=== PATIENT | female | born 1990 | race Caucasian/White ===

== ENCOUNTER 2018-06-09 10:58 | Day surgery (SDC) | payer OTHER ==
[2018-06-09] MEDS ORDERED: OXYMETAZOLINE HCL 0.05% 15ML NAS ONE ×4 (11:22→11:50)
[2018-06-09] MEDS ORDERED: Ringers Lactate 1,000 ML IV ONE ×2 (11:22→14:30)
[2018-06-09] MEDS ORDERED: SCOPOLAMINE HYDROBROMIDE PATCH TD ONE (11:42)
[2018-06-09] MEDS ORDERED: LIDOCAINE 1.5% W/EPI AMP 5 ML ONE (11:50)
[2018-06-09] MEDS ORDERED: NA CHLORIDE 0.9% 500 ML ONE (11:51)
[2018-06-09] MEDS ORDERED: PROPOFOL 200 MG/20 ML VIAL IV ONE (12:12)
[2018-06-09] MEDS ORDERED: FENTANYL CITR 250 MCG/5 ML ONE (12:12)
[2018-06-09] MEDS ORDERED: MIDAZOLAM HCL 2 MG/2 ML INJ ONE (12:12)
[2018-06-09] MEDS ORDERED: DEXAMETHASONE 4 MG/ML VIAL ONE (12:12)
[2018-06-09] MEDS ORDERED: ROCURONIUM 50 MG/5 ML VIAL IV ONE (12:12)
[2018-06-09] MEDS ORDERED: LIDOCAINE 2% MPF 5 ML VIAL ONE (12:12)
[2018-06-09] MEDS ORDERED: GLYCOPYRROLATE 0.2 MG/ML SYR ONE ×2 (12:48→12:50)
[2018-06-09] MEDS ORDERED: ONDANSETRON 4 MG/2 ML VIAL ONE ×2 (12:59→15:23)
[2018-06-09] MEDS: MORPHINE 4 MG/ML SYR ONE ×2 (14:54→15:00)
--- NOTE | 2018-06-09 15:32 | P.BOP ---
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
[2018-06-09] MEDS ORDERED: TRAMADOL HCL 50 MG TAB ONE (15:47)
--- NOTE | 2018-06-13 06:51 | OP ---
Date of Procedure: 06/09/2018 Surgeon: Marj Alvarado MD Preoperative Diagnosis: Chronic rhinosinusitis, previous sinus surgery. Indication For Procedure: Ms. Constance Thornton presented with moderate sinus symptoms, and a post-gurpreet tment CT scan demonstrated persistent disease in the ethmoid and frontal sinuses as well as the maxil rubens. The risks, benefits, and alternatives to the procedure were discussed with the patient, who ag jerome to proceed. Description Of Procedure: The patient was brought to the operating room. She was placed under gener al anesthesia via oral endotracheal tube. The head of the bed was turned to 90 degrees. The [employer] B navigation headpiece was secured to the forehead and registration was performed using the laser poi nter. Accuracy was confirmed by [id number] matching including the tip of the nose, the base of t he columella, the glabella, and the bilateral lateral canthi. Accuracy was felt to be very good. Th e patient was then prepped and draped in the standard fashion for sinus surgery. A 0-degree endoscop e was used to perform a nasal endoscopy. She was noted to have mild left septal deviation, and signi ficant surgical changes. The left middle turbinate was significantly scarred to the lateral nasal wa ll. The scar band was extended to full height of the middle turbinate. On the right side, a similar scar band was extended approximately 75% of the length of the middle turbinate. These areas of scar band were injected with local anesthetic. A through-cutting 45-degree Blakesley was used to remove this scar band on either side. Maxillary antrostomies were noted to have severe edema around the ope nings, and this edematous tissue was removed using a backbiter, 90-degree Blakesley, and microdebride r. After opening of the maxillary sinus, thick mucoid secretions were suctioned from the maxillary s inus, and attention was turned to the ethmoid cells. There were significant residual ethmoid cells i n the anterior ethmoid, particularly along the lamina. The location of these cells was confirmed wit h the navigation suction, and a curette was used to begin to divide the partitions. The bone was not ed to be severely osteitic, much harder than normal, requiring significantly increased pressure with the curette in order to divide these partitions. Once the partitions were divided, all bony fragment s were removed using the straight 45 and 90-degree Blakesley, and dissection was carried up towards t he frontal recess. The frontal recess was identified using the curved navigation suction, but was ve ry narrow. Dissection of the bony partitions within the superior portions of the anterior ethmoid wa s attempted using a 70-degree scope with a 90-degree curette as well as [id number] and side-to-joseph e Giraffe. The bone in this area was likewise noted to be very osteitic and difficult to dissect. A portion of the bone was removed, but additional dissection was truncated due to concerns for possibl e damage to the skull base due to the degree of pressure required to divide this osteitic bone. The GliaCureus balloon device was used to navigate the frontal recess. The frontal recess was dilated in o rder to provide some symptomatic improvement for the patient. Additional ethmoid dissection was perf ormed following dilation due to some loosening of bony fragments in the area of the frontal recess. Evaluation of the sphenoethmoidal recess was undertaken, the area was palpated and suctioned, but con sistent with preoperative imaging, the sphenoid was minimally developed, and there was no true sinus cavity present. The sinus cavity was then packed with Afrin-soaked pledgets, which were allowed to r emain in place for several minutes in order to allow for hemostasis. After removal of the pledgets, the sinuses were thoroughly irrigated with copious amounts of sterile saline. The pledgets were all removed, and the count was confirmed to be correct. Due to degree of scarring from previous surgery, a decision was made for placement of steroid-eluting stents to provide those visible separations bet ween structures as well as application of steroid to the mucosa. Overall, there was not significant amount of polyp noted within the sinuses, though there were areas of polypoid swelling as well as the thick mucoid secretions. A Propel mini stent was placed under endoscopic guidance into the frontal recess bilaterally, and a standard size Propel stent was placed within the ethmoid cavity bilaterally . Sinus culture of purulent-appearing debris was collected intraoperatively, and the patient will be started on antibiotics once results are available. ELLIOTT/LAURA Voice ID: [id number] Report ID: [id number]
== END 2018-06-09 16:15 | disposition home or self-care (01) ==
LOC: OR 10:58
PROVIDERS: ATTEND Otolaryngology
PROC: 09BV8ZZ Excision of Left Ethmoid Sinus, Via Natural or Artificial Opening Endoscopic (ICD-10-PCS; 2018-06-09)
PROC: 09BQ8ZZ Excision of Right Maxillary Sinus, Via Natural or Artificial Opening Endoscopic (ICD-10-PCS; 2018-06-09)
PROC: 09BR8ZZ Excision of Left Maxillary Sinus, Via Natural or Artificial Opening Endoscopic (ICD-10-PCS; 2018-06-09)
PROC: 09BU8ZZ Excision of Right Ethmoid Sinus, Via Natural or Artificial Opening Endoscopic (ICD-10-PCS; 2018-06-09)
PROC: 8E09XBZ Computer Assisted Procedure of Head and Neck Region (ICD-10-PCS; 2018-06-09)
PROC: 09QT8ZZ Repair Left Frontal Sinus, Via Natural or Artificial Opening Endoscopic (ICD-10-PCS; 2018-06-09)
PROC: 09QS8ZZ Repair Right Frontal Sinus, Via Natural or Artificial Opening Endoscopic (ICD-10-PCS; 2018-06-09)
PROC: 8E09XBZ Computer Assisted Procedure of Head and Neck Region (ICD-10-PCS; principal; 2018-06-09 12:00)
DX: J32.2 Chronic ethmoidal sinusitis (principal); J32.1 Chronic frontal sinusitis; J32.0 Chronic maxillary sinusitis; J34.2 Deviated nasal septum; Z87.891 Personal history of nicotine dependence
CPT/HCPCS: 81025; 87070; 87077; 87186; 87205; 88304; 88305; 88311; J2001; J2250; J2405; J2704; J3010

== ENCOUNTER → 2023-05-07 | Emergency (ER) | payer BC, OTHER ==
[~2023-05-07] MED LIST: KETOROLAC 30 MG/ML INJ ONE; NA CHLORIDE 0.9% 1,000 ML ONE; ONDANSETRON 4 MG/2 ML VIAL ONE
[2023-05-07 15:03] LABS: Specific Gravity < 1.005 (1.005-1.030)
[2023-05-07 15:04] LABS: Specific Gravity < 1.005 (1.005-1.030); Urine Bilirubin NEGATIVE (Negative); Urine Blood Negative (Negative); Urine Clarity Clear (Clear); Urine Color Colorless (Yellow); Urine Glucose NEGATIVE (Negative); Urine Protein NEGATIVE (Negative); Urine Urobilinogen Normal (Normal)
[2023-05-07 15:18] LABS: Albumin 3.7 g/dL (3.4-5.0); Bilirubin Total 0.6 mg/dL (0.2-1.0); Potassium 3.3 mEq/L (3.5-5.1); Protein, Total 7.5 g/dL (6.4-8.2)
[2023-05-07 15:26] LABS: Lymphocytes % 14.9 % (15.3-44.8); Platelets 177 thou/uL (152-406); RBC Red Blood Cell Count 3.27 M/uL (3.86-4.86)
--- NOTE | 2023-05-07 15:52 | RAD REPORT ---
EXAM DESCRIPTION: CTAbdomen Pelvis W Contrast - 05/07/2023 3:43 pm CLINICAL HISTORY: Abdominal pain. ABD PAIN COMPARISON: No comparisons TECHNIQUE: Biphasic CT imaging of the abdomen and pelvis was performed with 100 ml non-ionic IV cont rast. All CT scans are performed using dose optimization technique as appropriate and may include automated exposure control or mA/KV adjustment according to patient size. FINDINGS: Moderate bronchiectasis is seen in the left lower lobe. Mild fatty liver. The spleen, pancreas, adrenal glands and kidneys are within normal limits. Punctate calculi in the left kidney. No bowel obstruction, free air, free fluid or abscess. The appendix is normal. No evidence of signi ficant lymphadenopathy. 24 mm right ovarian follicle. No suspicious bony findings. IMPRESSION: Punctate left nephrolithiasis without hydronephrosis. 24 mm right ovarian follicle.
--- NOTE | 2023-05-07 16:22 | ER ---
Nurse's Notes [facility] Name: Constance Thornton Age: 33 yrs Sex: Female : 1990 Arrival Date: 05/07/2023 Time: 14:21 Bed 17 Private MD: Diagnosis: Lower abdominal pain, unspecified Presentation: 05/07 14:29 Chief complaint: Patient states: "I started having right flank pain 40 minutes ago and mb9 I'm nauseous. I have a history of kidney stones.". Coronavirus screen: At this time, the client does not indicate any symptoms associated with coronavirus-19. Ebola Screen: No symptoms or risks identified at this time. Initial Sepsis Screen: Does the patient meet any 2 criteria? No. Patient's initial sepsis screen is negative. Does the patient have a suspected source of infection? No. Patient's initial sepsis screen is negative. Risk Assessment: Do you want to hurt yourself or someone else? Patient reports no desire to harm self or others. Onset of symptoms was May 07, 2023. 14:29 Method Of Arrival: Ambulatory 9 14:29 Acuity: RENE 3 mb9 Triage Assessment: 14:31 General: Appears in no apparent distress. Behavior is calm, cooperative. Pain: mb9 Complains of pain in back. Neuro: Boogie Agitation-Sedation Scale (RASS): 0 - Alert and Calm Level of Consciousness is awake, alert, obeys commands, Oriented to person, place, time, situation, Appropriate for age. Respiratory: Airway is patent. GI: Reports nausea. : Denies burning with urination, incontinence. Derm: Skin is pink, warm \\T\\ dry. Musculoskeletal: Range of motion: intact in all extremities. Historical: - Allergies: 14:30 No Known Allergies; mb9 - PMHx: 14:30 Asthma; Lupus erythematosus; kidney stones; mb9 - PSHx: 14:30 nephrolithotomy; mb9 - Immunization history:: Adult Immunizations up to date. - Social history:: Smoking status: Patient denies any tobacco usage or history of. Screenin:55 [facility] ED Fall Risk Assessment (Adult) History of falling in the last 3 months, bp including since admission No falls in past 3 months (0 pts). Abuse screen: Denies threats or abuse. Denies injuries from another. Nutritional screening: No deficits noted. Tuberculosis screening: No symptoms or risk factors identified. Assessment: 14:30 General: SEE TRIAGE NOTE. bp 16:54 Reassessment: PT DC HOME. bp Vital Signs: 14:29 BP 116 / 82; Pulse 104; Resp 16; Temp 97.8; Pulse Ox 100% ; Weight 62.6 kg; Height 5 mb9 ft. 0 in. ; Pain 8/10; 16:53 BP 121 / 75; Pulse 87; Resp 18; Pulse Ox 99% ; bp 14:29 Body Mass Index 26.95 (62.60 kg, 152.4 cm) mb9 14:29 Pain Scale: Adult mb9 ED Course: 14:23 Patient arrived in ED. rg4 14:24 Juarez Pelayo DO is Attending Physician. ms3 14:28 Fili Leal, RN is Primary Nurse. bp 14:30 Triage completed. mb9 14:31 Arm band placed on. mb9 15:05 Initial lab(s) drawn, by pr, sent to lab. Urine collected: clean catch specimen, clear. [id number] Inserted saline lock: 22 gauge in right antecubital area, using aseptic technique. Blood collected. 15:45 CT Abd/Pelvis - IV Contrast Only In Process Unspecified. EDMS 16:54 Patient has correct armband on for positive identification. bp 16:54 No provider procedures requiring assistance completed. IV discontinued, intact, bp bleeding controlled, No redness/swelling at site. Pressure dressing applied. Administered Medications: 15:05 Drug: NS 0.9% IV 1000 ml IV at 1 bolus Per protocol; 1000 mL bolus Route: IV; Rate: 1 bp bolus; Site: right antecubital; 16:55 Follow up: IV Status: Completed infusion; IV Intake: 1000ml bp 15:06 Drug: TORadol - Ketorolac IVP 15 mg IVP once Route: IVP; Site: right antecubital; bp 16:55 Follow up: Response: No adverse reaction bp 15:06 Drug: Ondansetron IVP 4 mg IVP once; over 2 minutes Route: IVP; Site: right antecubital;bp 16:55 Follow up: Response: No adverse reaction bp Medication: 16:54 VIS not applicable for this client. bp Intake: 16:55 IV: 1000ml; Total: 1000ml. bp Outcome: 16:21 Discharge ordered by . ms3 16:54 Patient left the ED. eb 16:54 Discharged to home ambulatory, bp 16:54 Condition: stable 16:54 Discharge instructions given to patient, Instructed on discharge instructions, follow up and referral plans. Demonstrated understanding of instructions, follow-up care, Signatures: Dispatcher [employer] Cherry Prado rg4 Fili Leal, RN RN Lucy Robertson Marcus, DO DO ms3 Jen Sykes RN RN mb9 Parker Noland jg11
--- NOTE | 2023-05-07 16:22 | EDPHYS ---
Physician Documentation [facility] Name: Constance Thornton Age: 33 yrs Sex: Female : 1990 Arrival Date: 05/07/2023 Time: 14:21 Bed 17 Private MD: ED Physician Juarez Pelayo HPI: 05/07 14:42 This 33 yrs old Female presents to ER via Ambulatory with complaints of Flank Pain. [facility] 14:42 33-year-old female past medical history of asthma, lupus, kidney stones presents to the [facility] emergency department for right-sided flank pain that began 40 minutes prior to arrival. Patient states her pain is rated a 8/10. Patient denies any alleviating or inciting factors. Patient endorses nausea and denies vomiting. Historical: - Allergies: 14:30 No Known Allergies; mb9 - PMHx: 14:30 Asthma; Lupus erythematosus; kidney stones; mb9 - PSHx: 14:30 nephrolithotomy; mb9 - Immunization history:: Adult Immunizations up to date. - Social history:: Smoking status: Patient denies any tobacco usage or history of. ROS: 14:42 Constitutional: Negative for fever, and chills. Neck: Negative for injury, pain, and ms3 swelling, Cardiovascular: Negative for chest pain, and palpitations. Respiratory: Negative for shortness of breath, cough, wheezing, and pleuritic chest pain, 14:42 MS/Extremity: Negative for injury and deformity, Skin: Negative for injury, rash, and discoloration, 14:42 Abdomen/GI: Positive for nausea, Negative for vomiting, 14:42 All other systems are negative, Exam: 14:42 Constitutional: This is a well developed, well nourished patient who is awake, alert, ms3 and in no acute distress. Head/Face: Normocephalic, atraumatic. Chest/axilla: Normal chest wall appearance and motion. Nontender with no deformity. Cardiovascular: Regular rate and rhythm with a normal S1 and S2. No gallops, murmurs, or rubs. Normal PMI, no JVD. No pulse deficits. Respiratory: Lungs have equal breath sounds bilaterally, clear to auscultation and percussion. No rales, rhonchi or wheezes noted. No increased work of breathing, no retractions or nasal flaring. Abdomen/GI: Soft, non-tender, with normal bowel sounds. No distension or tympany. No guarding or rebound. No evidence of tenderness throughout. Skin: Warm, dry with normal turgor. Normal color with no rashes, no lesions, and no evidence of cellulitis. MS/ Extremity: Pulses equal, no cyanosis. Neurovascular intact. Full, normal range of motion. Vital Signs: 14:29 BP 116 / 82; Pulse 104; Resp 16; Temp 97.8; Pulse Ox 100% ; Weight 62.6 kg; Height 5 mb9 ft. 0 in. ; Pain 8/10; 16:53 BP 121 / 75; Pulse 87; Resp 18; Pulse Ox 99% ; bp 14:29 Body Mass Index 26.95 (62.60 kg, 152.4 cm) mb9 14:29 Pain Scale: Adult mb9 MDM: 14:30 Patient medically screened. ms3 14:42 Differential diagnosis: nephrolithiasis, pyelonephritis, UTI. ms3 16:23 Data reviewed: vital signs, nurses notes, and as a result, I will discharge patient. I ms3 considered the following discharge prescriptions or medication management in the emergency department Medications were administered in the Emergency Department. See MAR. Care significantly affected by the following chronic conditions: Lupus, asthma, kidney stones. Counseling: I had a detailed discussion with the patient and/or guardian regarding the historical points, exam findings, and any diagnostic results supporting the discharge/admit diagnosis, lab results, radiology results, the need for outpatient follow up, to return to the emergency department if symptoms worsen or persist or if there are any questions or concerns that arise at home. Response to treatment: the patient's symptoms have mildly improved after treatment. Special discussion: Based on the patient's Hx, exam, and Dx evaluation, there is no indication for emergent surgery or inpatient Tx. It is understood by the patient/guardian that if the Sx's persist or worsen they need to return immediately for re-evaluation. ED course: Discussed labs, CT scan with patient. Patient to follow-up with primary care physician in 2 to 3 days. Patient stands agrees plan. Questions were answered. Return precautions discussed include worsening symptoms, or any other concerns. 05/07 14:34 Order name: CBC with Diff ms3 05/07 14:34 Order name: CMP; Complete Time: 16:15 ms3 05/07 14:34 Order name: Test, Urine; Complete Time: 15:18 ms3 05/07 14:34 Order name: Urinalysis w/ reflexes; Complete Time: 15:18 ms3 05/07 14:34 Order name: CT Abd/Pelvis - IV Contrast Only; Complete Time: 16:15 ms3 05/07 14:34 Order name: IV Saline Lock; Complete Time: 14:50 ms3 05/07 14:34 Order name: Labs collected and sent; Complete Time: 14:50 ms3 Administered Medications: 15:05 Drug: NS 0.9% IV 1000 ml IV at 1 bolus Per protocol; 1000 mL bolus Route: IV; Rate: 1 bp bolus; Site: right antecubital; 16:55 Follow up: IV Status: Completed infusion; IV Intake: 1000ml bp 15:06 Drug: TORadol - Ketorolac IVP 15 mg IVP once Route: IVP; Site: right antecubital; bp 16:55 Follow up: Response: No adverse reaction bp 15:06 Drug: Ondansetron IVP 4 mg IVP once; over 2 minutes Route: IVP; Site: right antecubital;bp 16:55 Follow up: Response: No adverse reaction bp Disposition Summary: 05/07/23 16:21 Discharge Ordered Notes: Location: Home ms3 Condition: Stable ms3 Diagnosis - Lower abdominal pain, unspecified ms3 Followup: ms3 - With: Private Physician - When: 2 - 3 days - Reason: Recheck today's complaints Discharge Instructions: - Discharge Summary Sheet ms3 - Abdominal Pain, Adult ms3 Forms: - Medication Reconciliation Form ms3 - Thank You Letter ms3 - Antibiotic Education ms3 - Prescription Opioid Use ms3 - Patient Portal Instructions ms3 - Leadership Thank You Letter ms3 Signatures: Dispatcher [employer] Fili Long RN RN Juarez Saba DO DO ms3 Jen Sykes RN RN mb9
[2023-05-07 18:21] VITALS: BP 121/75; TEMP 97.8; O2SAT 99
[2023-05-07 20:52] LABS: White Blood Cell Scan OK (OK)
[2023-05-07 20:53] LABS: Blood Morphology Comment NOTED (NOT SEEN); Macrocytosis 1+; Platelet Estimate ADEQ
== END ==
LOC: ER 14:21
DX: R10.31 Right lower quadrant pain (principal); Z87.442 Personal history of urinary calculi
CPT/HCPCS: 85025; 36415; 81025; 81003; 80053; 74177; Q9967; J2405; J7030

== ENCOUNTER 2024-07-14 15:11 | Emergency (ER) | payer BC, OTHER ==
--- OUTSIDE RECORDS SUMMARY | 2024-07-14 15:14 | XMS REPORT | Continuity of Care Document ---
Author Name Unknown Address [address] [place] [address] [place] [id number] Care Team Providers Care Preliminary School Psychologist Name Role Phone Maribel Noland Attending Clinician Jasonab Maribel Alas Admitting Clinician Mitzy brothers Encounters Start Date/Time End Date/Time Encounter Type Admission Type Attending Clinicians Care Facility Care Department Encounter ID Source 2024-05-16 09:21:01 Outpatient Maribel Noland [facility] [id number] [facility]
--- NOTE | 2024-07-14 15:37 | EDPHYS ---
Physician Documentation [facility] Name: Constance Thornton Age: 34 yrs Sex: Female : 1990 Arrival Date: 07/14/2024 Time: 15:11 Bed DX4 Private MD: ED Physician Nova Pena HPI: 07/14 15:34 This 34 yrs old Female presents to ER via Ambulatory with complaints of Abnormal sp3 Imaging Results. 15:34 34-year-old female with no significant past medical history presents with abnormal lung sp3 finding on CT scan of the abdomen pelvis noncontrast assessing for kidney stone. She did have a punctate kidney stone however left lung base demonstrates probable infiltrate. Patient does endorse cough and upper respiratory symptoms without fever. Her PCP referred her here for further evaluation. Patient denies fever, chest pain, back pain, rash, known sick contacts, travel history, prolonged immobilization, or any other signs or symptoms on ROS at this time.. 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 - Infectious Disease History:: Denies. - Social history:: Smoking status: Patient denies any tobacco usage or history of. ROS: 15:34 Constitutional: Negative for fever, chills, and weight loss, Eyes: Negative for injury, sp3 pain, redness, and discharge, Neck: Negative for injury, pain, and swelling, Cardiovascular: Negative for chest pain, palpitations, and edema, Abdomen/GI: Negative for abdominal pain, nausea, vomiting, diarrhea, and constipation, Back: Negative for injury and pain, MS/Extremity: Negative for injury and deformity, Skin: Negative for injury, rash, and discoloration, Neuro: Negative for headache, weakness, numbness, tingling, and seizure, Psych: Negative for depression, anxiety, suicide ideation, homicidal ideation, and hallucinations, Allergy/Immunology: Negative for hives, rash, and allergies, Endocrine: Negative for neck swelling, polydipsia, polyuria, polyphagia, and marked weight changes, 15:34 All other systems are negative, Exam: 15:35 Constitutional: This is a well developed, well nourished patient who is awake, alert, sp3 and in no acute distress. Head/Face: Normocephalic, atraumatic. Eyes: Pupils equal round and reactive to light, extra-ocular motions intact. Lids and lashes normal. Conjunctiva and sclera are non-icteric and not injected. Cornea within normal limits. Periorbital areas with no swelling, redness, or edema. ENT: Nares patent. No nasal discharge, no septal abnormalities noted. External auditory canals are clear. Oropharynx with no redness, swelling, or masses, exudates, or evidence of obstruction, uvula midline. Mucous membranes moist. Neck: Trachea midline, no thyromegaly or masses palpated, and no cervical lymphadenopathy. Supple, full range of motion without nuchal rigidity, or vertebral point tenderness. No Meningismus. Chest/axilla: Normal chest wall appearance and motion. Nontender with no deformity. No lesions are appreciated. Cardiovascular: Regular rate and rhythm with a normal S1 and S2. No gallops, murmurs, or rubs. Normal PMI, no JVD. No pulse deficits. Respiratory: Lungs have equal breath sounds bilaterally, clear to auscultation and percussion. No rales, rhonchi or wheezes noted. No increased work of breathing, no retractions or nasal flaring. Abdomen/GI: Soft, non-tender, with normal bowel sounds. No distension or tympany. No guarding or rebound. No evidence of tenderness throughout. Back: No spinal tenderness. No costovertebral tenderness. Full range of motion. Skin: Warm, dry with normal turgor. Normal color with no rashes, no lesions, and no evidence of cellulitis. MS/ Extremity: Pulses equal, no cyanosis. Neurovascular intact. Full, normal range of motion. Neuro: Awake and alert, GCS 15, oriented to person, place, time, and situation. Cranial nerves II-XII grossly intact. Motor strength 5/5 in all extremities. Sensory grossly intact. Cerebellar exam normal. Normal gait. Psych: Awake, alert, with orientation to person, place and time. Behavior, mood, and affect are within normal limits. 15:35 Respiratory: Mild cough noted. Lungs are clear bilaterally., Vital Signs: 15:31 BP 112 / 83; Pulse 87; Resp 15; Temp 98.7; Pulse Ox 99% ; Weight 49.9 kg; Height 5 ft. jl7 0 in. ; Pain 0/10; 15:31 Body Mass Index 21.48 (49.90 kg, 152.4 cm) jl7 15:31 Pain Scale: Adult jl7 MDM: 15:28 Medical Screening Exam initiated sp3 15:35 Data reviewed: vital signs, nurses notes, old medical records. ED course: 34-year-old sp3 female with abnormal CT scan. CT scan reviewed from earlier today. Patient has normal vital signs and is in no acute distress. No blood work indicated. Will place on Zithromax and have her follow-up with PCP.. Administered Medications: No medications were administered Disposition Summary: 07/14/24 15:36 Discharge Ordered Notes: Location: Home sp3 Condition: Stable sp3 Diagnosis - Pneumonia, incidental finding sp3 Followup: sp3 - With: Private Physician - When: Upon discharge from the Emergency Department - Reason: Recheck today's complaints, Continuance of care Discharge Instructions: - Discharge Summary Sheet sp3 - Community-Acquired Pneumonia, Adult sp3 Forms: - Medication Reconciliation Form sp3 - Antibiotic Education sp3 - Prescription Opioid Use sp3 - Patient Portal Instructions sp3 - Leadership Thank You Letter sp3 Prescriptions: - Zithromax Z-Franc 250 mg Oral Tablet - take 1 tablet ORAL route as directed for 5 days Day 1 - take two (2) tablets sp3 one time. Day 2, 3, 4 , 5 take one (1) tablet once daily.; 6 tablet; Refills: 0, Product Selection Permitted Signatures: Delphine Veliz RN RN jl7 Nova Pena MD MD sp3
--- NOTE | 2024-07-14 15:37 | ER ---
Nurse's Notes [facility] Name: Constance Thornton Age: 34 yrs Sex: Female : 1990 Arrival Date: 07/14/2024 Time: 15:11 Bed DX4 Private MD: Diagnosis: Pneumonia, incidental finding Presentation: 07/14 15:31 Chief complaint: Patient states: CT done outpatient for kidney stone protocol and jl7 caught pneumonia. Pt reports mild cough, denies fever. Coronavirus screen: At this time, the client does not indicate any symptoms associated with coronavirus-19. Ebola Screen: No symptoms or risks identified at this time. Initial Sepsis Screen: Does the patient meet any 2 criteria? No. Patient's initial sepsis screen is negative. Does the patient have a suspected source of infection? No. Patient's initial sepsis screen is negative. Risk Assessment: Do you want to hurt yourself or someone else? Patient reports no desire to harm self or others. Onset of symptoms is unknown. 15:31 Method Of Arrival: Ambulatory [facility] 15:31 Acuity: RENE 3 jl7 Triage Assessment: 15:33 General: Appears in no apparent distress. uncomfortable, Behavior is calm, cooperative, jl7 appropriate for age. Pain: Denies pain. Neuro: Level of Consciousness is awake, alert, obeys commands, Oriented to person, place, time, situation. Cardiovascular: Patient's skin is warm and dry. Respiratory: Airway is patent Respiratory effort is even, unlabored, Respiratory pattern is regular, symmetrical. Derm: Skin is pink, warm \T\ dry. 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 - Infectious Disease History:: Denies. - Social history:: Smoking status: Patient denies any tobacco usage or history of. Screenin:05 [facility] ED Fall Risk Assessment (Adult) History of falling in the last 3 months, jl7 including since admission No falls in past 3 months (0 pts) Confusion or Disorientation No (0 pts) Intoxicated or Sedated No (0 pts) Impaired Gait No (0 pts) Mobility Assist Device Used No (0 pt) Altered Elimination No (0 pt) Score/Fall Risk Level 0 - 2 = Low Risk Oriented to surroundings, Maintained a safe environment. Abuse screen: Denies threats or abuse. Denies injuries from another. Nutritional screening: No deficits noted. Tuberculosis screening: No symptoms or risk factors identified. Vital Signs: 15:31 BP 112 / 83; Pulse 87; Resp 15; Temp 98.7; Pulse Ox 99% ; Weight 49.9 kg; Height 5 ft. jl7 0 in. ; Pain 0/10; 15:31 Body Mass Index 21.48 (49.90 kg, 152.4 cm) jl7 15:31 Pain Scale: Adult jl7 ED Course: 15:15 Patient arrived in ED. al6 15:15 Nova Pena MD is Attending Physician. sp3 15:33 Triage completed. jl7 15:33 Arm band placed on right wrist. jl7 16:05 Delphine Veliz RN is Primary Nurse. jl7 16:05 Patient has correct armband on for positive identification. Provided Education on: jl7 discharge. 16:05 No provider procedures requiring assistance completed. Patient did not have IV access jl7 during this emergency room visit. Administered Medications: No medications were administered Medication: 16:05 VIS not applicable for this client. jl7 Outcome: 15:36 Discharge ordered by . sp3 16:05 Discharged to home ambulatory, jl7 16:05 Condition: stable 16:05 Discharge instructions given to patient, Instructed on discharge instructions, follow up and referral plans. Demonstrated understanding of instructions, follow-up care, 16:06 Patient left the ED. jl7 Signatures: Delphine Veliz RN RN jl7 Nova Pena MD MD sp3 Anna Blakely al6
[2024-07-14 16:12] VITALS: BP 112/83; TEMP 98.7; O2SAT 99
== END 2024-07-14 16:06 | disposition home or self-care (01) ==
LOC: ER 15:11
DX: J18.9 Pneumonia, unspecified organism (principal); Z87.442 Personal history of urinary calculi
CPT/HCPCS: 99282

== ENCOUNTER 2024-08-09 14:59 | Observation (INO) | payer BC, OTHER ==
--- OUTSIDE RECORDS SUMMARY | 2024-08-09 15:02 | XMS REPORT | Continuity of Care Document ---
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
--- NOTE | 2024-08-09 16:21 | RAD REPORT ---
EXAMINATION: ONE VIEW CHEST XR CLINICAL INDICATION: CHEST PAIN TECHNIQUE: Frontal chest projection is submitted. Examination is limited by patient positioning and t echnique. COMPARISON: No prior exam. FINDINGS: Small left pleural effusion. Lungs are grossly clear. The heart is upper limit of normal in size. No displaced fractures identified. Subtle thoracic levoscoliosis. IMPRESSION: Small left pleural effusion.
[2024-08-09 17:08] LABS: Specific Gravity 1.028 (1.005-1.030)
[2024-08-09 18:19] LABS: Absolute Eosinophils 0.2 K/uL (0-0.5); Absolute Lymphocytes (CBC) 1.5 K/uL (0.7-4.9); Absolute Monocytes 0.3 K/uL (0.1-1.3); Absolute Neutrophil 3.4 K/uL (1.8-8.0); Basophils % 0.3 % (0-1.3); Eosinophils % 3.3 % (0-4.4); Hemoglobin 12.3 g/dL (12.0-15.0); Lymphocytes % 28.1 % (15.3-44.8); MCH 37.8 pg (27.0-35.0); MCV 107.8 fL (80-100); MPV 6.3 fL (7.6-11.3); Monocytes % 4.9 % (3.3-12.3); Neutrophils % 63.4 % (41.7-73.7); Nucleated Red Blood Cells % 0.1 % (0-0); Platelets 219 thou/uL (152-406); RBC Red Blood Cell Count 3.25 M/uL (3.86-4.86); Red Cell Distribution Width 12.9 % (12.1-15.2)
[2024-08-09] MEDS ORDERED: Levofloxacin 750mg IV 750 MG/150 ML BAG IV ONE (18:32)
[2024-08-09] MEDS ORDERED: NA CHLORIDE 0.9% 1,000 ML ONE ×2 (18:32→19:13)
--- NOTE | 2024-08-09 18:35 | RAD REPORT ---
EXAMINATION: CTA CHEST PE CLINICAL INDICATION: COUGH TECHNIQUE: This examination was performed according to an angiographic protocol with 3D post-processi ng. This involves 3D reconstructions, MIPs, volume rendered images and/or shaded surface rendering. One or more of the following dose reduction techniques were used: Automated exposure control, adjustm ent of the mA and/or kV according to patient size, and/or iterative reconstruction. Unless otherwise specified, incidental findings do not require dedicated imaging follow-up. COMPARISON: No prior exam. FINDINGS: PULMONARY ARTERIES: Normal caliber. No evidence of pulmonary emboli to the subsegmental level. THORACIC AORTA: Normal caliber and configuration. LUNGS: There is significant bronchiectasis seen in the right middle lobe, lingula and left lower lobe . Mild tree-in-bud opacities present in the left lung base. PLEURA: Small left pleural effusion. MEDIASTINUM AND LYMPH NODES: Upper limit of normal mediastinal and hilar lymph nodes are seen. OSSEOUS STRUCTURES AND CHEST WALL: Intact. UPPER ABDOMEN: No significant abnormalities. IMPRESSION: No evidence of pulmonary emboli to the subsegmental level. Significant bronchiectasis is noted in the right middle lobe, lingula and left lower lobe. Tree-in-bu d opacities in the left lung base suggests endobronchial spread of infection. Small left pleural effusion.
[2024-08-09 18:42] LABS: ALT/SGPT 15 U/L (13-56); AST/SGOT 11 U/L (15-37); Albumin 4.1 g/dL (3.4-5.0); Alkaline Phosphatase 64 U/L (45-117); Anion Gap 9.6 mEq/L (5.0-15.0); BUN Blood Urea Nitrogen 4 mg/dL (7-18); Bicarbonate 26 mEq/L (21-32); Bilirubin Total 0.4 mg/dL (0.2-1.0); Glomerular Filtration Rate 120 ml/min (=/>90); Glucose Level 96 mg/dL (74-106); Magnesium 2.2 mg/dL (1.6-2.4); NT PRO-BNP 72 pg/mL (<125); Potassium 3.6 mEq/L (3.5-5.1); Protein, Total 8.1 g/dL (6.4-8.2); Sodium Level 137 mEq/L (136-145)
[2024-08-09 18:43] LABS: Bilirubin Direct < 0.2 mg/dL (0-0.2); Bilirubin Indirect, Calculated 0.2 mg/dL (0.2-0.8); Troponin High Sensitivity < 3.0 pg/mL (<58.9)
[2024-08-09 18:44] LABS: Influenza A Ag Negative; Influenza B Ag Negative; SARS-CoV-2 Antigen Rapid Res Negative (Negative)
--- NOTE | 2024-08-09 18:49 | ER ---
Nurse's Notes [facility] Name: Constance Thornton Age: 34 yrs Sex: Female : 1990 Arrival Date: 08/09/2024 Time: 14:59 Bed 7 Private MD: Diagnosis: Pneumonia due to other specified bacteria-BILATERAL;Pleurisy;Pleural effusion, not elsewhere classified;Bronchiectasis with acute lower respiratory infection;Systemic lupus erythematosus, unspecified Presentation: 08/09 15:04 Chief complaint: Patient states: has been having trouble breathing and catching her iw breath that started last week, I just left my doctor and she thought I needed a CT of her chest because her lungs sound back, + cough at night , wakes up with sweats. Coronavirus screen: At this time, the client does not indicate any symptoms associated with coronavirus-19. 15:04 Method Of Arrival: Ambulatory iw 15:06 Ebola Screen: No symptoms or risks identified at this time. Initial Sepsis Screen: Does iw the patient meet any 2 criteria? No. Patient's initial sepsis screen is negative. Does the patient have a suspected source of infection? No. Patient's initial sepsis screen is negative. Risk Assessment: Do you want to hurt yourself or someone else? Patient reports no desire to harm self or others. Onset of symptoms was August 02, 2024. 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 - Infectious Disease History:: Denies. - Social history:: Smoking status: Patient denies any tobacco usage or history of. Screenin:28 [facility] ED Fall Risk Assessment (Adult) History of falling in the last 3 months, al5 including since admission No falls in past 3 months (0 pts) Confusion or Disorientation No (0 pts) Intoxicated or Sedated No (0 pts) Impaired Gait No (0 pts) Mobility Assist Device Used No (0 pt) Altered Elimination No (0 pt) Score/Fall Risk Level 0 - 2 = Low Risk Oriented to surroundings, Maintained a safe environment, Hourly rounding (assess needs \T\ fall precautionary measures) done. Abuse screen: Denies threats or abuse. Denies injuries from another. Nutritional screening: No deficits noted. Tuberculosis screening: No symptoms or risk factors identified. Assessment: 18:04 Reassessment: No changes from previously documented assessment. Patient and/or family ll1 updated on plan of care and expected duration. Pain level reassessed. 19:28 General: Appears in no apparent distress. comfortable, Behavior is calm, cooperative. al5 Pain: Denies pain. denies pain Pain began denies pain. Neuro: Level of Consciousness is awake, alert, obeys commands, Oriented to person, place, time, situation. Cardiovascular: Capillary refill < 3 seconds Patient's skin is warm and dry. Rhythm is sinus rhythm. Respiratory: Airway is patent Respiratory effort is even, unlabored, Respiratory pattern is regular, symmetrical. GI: No signs and/or symptoms were reported involving the gastrointestinal system. : No signs and/or symptoms were reported regarding the genitourinary system. EENT: No signs and/or symptoms were reported regarding the EENT system. Derm: Skin is intact, is healthy with good turgor, Skin is pink, warm \T\ dry. normal. Musculoskeletal: No signs and/or symptoms reported regarding the musculoskeletal system. Vital Signs: 15:06 BP 118 / 85; Pulse 74; Resp 16; Temp 98; Pulse Ox 100% on R/A; Weight 48.99 kg; Height iw 5 ft. 1 in. ; 19:27 BP 98 / 75; Pulse 68; Resp 16; Pulse Ox 100% on R/A; al5 15:06 Body Mass Index 20.41 (48.99 kg, 154.94 cm) ED Course: 15:01 Patient arrived in ED. cj3 15:05 Marino Guzman MD is Attending Physician. lei 15:06 Triage completed. iw 15:06 Arm band placed on. iw 15:10 Radiology exam delayed due to lab results not completed at this time. (HCG) jc4 (BUN/Creatinine) test not completed at this time. IV insertion attempt and/or patient not having appropriate IV at this time. 15:52 XRAY Chest (1 view) In Process Unspecified. EDMS 15:52 Radiology exam delayed due to lab results not completed at this time. (HCG) nj (BUN/Creatinine) test not completed at this time. IV insertion attempt and/or patient not having appropriate IV at this time. 16:53 PREGU Sent. ll1 16:53 Urinalysis w/ reflexes Sent. ll1 17:55 CT Chest For PE Angio In Process Unspecified. EDMS 18:04 Patient placed in an exam room, on a stretcher. ll1 18:04 Basic Metabolic Panel Sent. ll1 18:04 CBC with Diff Sent. ll1 18:07 COVID-19 Ag + Flu A+B Ag Sent. ll1 18:34 LFT's Sent. dd2 18:34 Magnesium Sent. dd2 18:34 NT PRO-BNP Sent. dd2 18:34 PT-INR Sent. dd2 18:34 Troponin HS Sent. dd2 18:34 Blood Culture Adult (2) Sent. dd2 18:46 Traci Steret MD is Hospitalizing Provider. [facility] 19:27 Shayla Gamboa RN is Primary Nurse. al5 19:29 Patient has correct armband on for positive identification. Bed in low position. Call al5 light in reach. Side rails up X2. Provided Education on: plan of care. Client placed on continuous cardiac and pulse oximetry monitoring. NIBP monitoring applied. threat monitoring analyst on. Pulse ox on. 19:29 No provider procedures requiring assistance completed. Patient maintains SpO2 al5 saturation greater than 95% on room air. 23:31 Patient admitted, IV remains in place. al5 Administered Medications: 18:47 Drug: NS 0.9% IV 1000 ml IV at 1000 ml once; to be given as a bolus over 60 minutes dd2 Route: IV; Rate: 1000 ml; Site: left antecubital; 18:47 Drug: levofloxacin IVPB 750 mg 150 ml IVPB once over 90 mins Volume: 150 ml; Route: dd2 IVPB; Infused Over: 90 mins; Site: left antecubital; 19:29 Drug: Levalbuterol Inhalation 2.5 mg Inhalation once Route: Inhalation; al5 19:29 Drug: Ipratropium Inhalation Aerosol 0.5 mg Inhalation once Route: Inhalation; al5 21:00 Drug: NS 0.9% IV 1000 ml IV at 1000 ml once; to be given as a bolus over 60 minutes rg5 Route: IV; Rate: 1000 ml; Site: left antecubital; 21:00 Drug: Rocephin IV 2 grams IV at per protocol once; Given slow IV push per pharmarcy rg5 instructions Route: IV; Rate: per protocol; Site: left antecubital; Medication: 19:29 VIS not applicable for this client. al5 Outcome: 18:48 Decision to Hospitalize by Provider. lei 23:31 Admitted to ER Hold. Please see [facility] for further documentation. al5 23:31 Condition: stable 23:31 Instructed on the need for admit, 08/10 01:03 Patient left the ED. rg5 Signatures: Dispatcher [employer] EDMS Marino Guzman MD MD cha Williams, Irene, REG RN Marcelo Reyes Lynsay, RN RN ll1 Deon Romero RN RN rg5 Shayla Gamboa RN RN al5 Arley Chiu DIANA, RN RN dd2 Akila Frank cj3 Corrections: (The following items were deleted from the chart) 08/09 17:04 16:53 TEST, SERUM+SC.LAB.BRZ drawn and sent. 1 EDMS 18:47 18:46 Rocephin IV 2 grams IV at per protocol in left antecubital dd2 dd2 18:47 18:47 NS 0.9% IV 1000 ml IV at 1000 ml in left antecubital dd2 dd2
--- NOTE | 2024-08-09 18:49 | EDPHYS ---
Physician Documentation [facility] Name: Constance Thornton Age: 34 yrs Sex: Female : 1990 Arrival Date: 08/09/2024 Time: 14:59 Bed 7 Private MD: ED Physician Marino Guzman HPI: 08/09 18:17 This 34 yrs old Female presents to ER via Ambulatory with complaints of Breathing lei Difficulty, Cough. 18:17 The patient has shortness of breath with light activity. Onset: The symptoms/episode lei began/occurred 1 week(s) ago. The patient's shortness of breath is aggravated by coughing, exertion, is alleviated by rest, sitting up, application of supplemental oxygen. The patient or guardian reports chest pain that is located primarily in the anterior chest wall, left. The pain does not radiate. Associated signs and symptoms: The patient has no apparent associated signs or symptoms. Severity of symptoms: At their worst the symptoms were moderate in the emergency department the symptoms are unchanged. Associated signs and symptoms: The patient has no apparent associated signs or symptoms. The chest pain is described as stabbing. Duration: The patient or guardian reports multiple episodes, that wax and wane. Modifying factors: The symptoms are alleviated by NSAIDS, remaining still, the symptoms are aggravated by cough, deep breath, movement. Severity of pain: At its worst the pain was moderate in the emergency department the pain is unchanged. The patient has not experienced similar symptoms in the past. 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 - Infectious Disease History:: Denies. - Social history:: Smoking status: Patient denies any tobacco usage or history of. ROS: 18:19 Constitutional: Negative for fever, chills, and weight loss, Eyes: Negative for injury, lei pain, redness, and discharge, ENT: Negative for injury, pain, and discharge, Neck: Negative for injury, pain, and swelling, Cardiovascular: Negative for chest pain, palpitations, and edema, Abdomen/GI: Negative for abdominal pain, nausea, vomiting, diarrhea, and constipation, Back: Negative for injury and pain, : Negative for injury, bleeding, discharge, and swelling, MS/Extremity: Negative for injury and deformity, Skin: Negative for injury, rash, and discoloration, Neuro: Negative for headache, weakness, numbness, tingling, and seizure, Psych: Negative for depression, anxiety, suicide ideation, homicidal ideation, and hallucinations, Allergy/Immunology: Negative for hives, rash, and allergies, Endocrine: Negative for neck swelling, polydipsia, polyuria, polyphagia, and marked weight changes, Hematologic/Lymphatic: Negative for swollen nodes, abnormal bleeding, and unusual bruising, 18:19 Respiratory: Positive for cough, shortness of breath, wheezing, inspiratory, expiratory, 18:19 MS/extremity: Negative for acute changes, Exam: 18:19 Constitutional: This is a well developed, well nourished patient who is awake, alert, lei and in no acute distress. Head/Face: Normocephalic, atraumatic. Eyes: Pupils equal round and reactive to light, extra-ocular motions intact. Lids and lashes normal. Conjunctiva and sclera are non-icteric and not injected. Cornea within normal limits. Periorbital areas with no swelling, redness, or edema. ENT: Nares patent. No nasal discharge, no septal abnormalities noted. Tympanic membranes are normal and external auditory canals are clear. Oropharynx with no redness, swelling, or masses, exudates, or evidence of obstruction, uvula midline. Mucous membranes moist. Neck: Trachea midline, no thyromegaly or masses palpated, and no cervical lymphadenopathy. Supple, full range of motion without nuchal rigidity, or vertebral point tenderness. No Meningismus. Chest/axilla: Normal chest wall appearance and motion. Nontender with no deformity. No lesions are appreciated. Cardiovascular: Regular rate and rhythm with a normal S1 and S2. No gallops, murmurs, or rubs. Normal PMI, no JVD. No pulse deficits. Abdomen/GI: Soft, non-tender, with normal bowel sounds. No distension or tympany. No guarding or rebound. No evidence of tenderness throughout. Back: No spinal tenderness. No costovertebral tenderness. Full range of motion. Skin: Warm, dry with normal turgor. Normal color with no rashes, no lesions, and no evidence of cellulitis. MS/ Extremity: Pulses equal, no cyanosis. Neurovascular intact. Full, normal range of motion., bilateral aka Neuro: Awake and alert, GCS 15, oriented to person, place, time, and situation. Cranial nerves II-XII grossly intact. Motor strength 5/5 in all extremities. Sensory grossly intact. Cerebellar exam normal. Normal gait. Psych: Awake, alert, with orientation to person, place and time. Behavior, mood, and affect are within normal limits. 18:19 Respiratory: the patient does not display signs of respiratory distress, Respirations: normal, Breath sounds: bronchial sounds, decreased breath sounds, rhonchi, that are moderate, are located in both bases, are heard in the left lower lobe and left posterior lower lobe, 18:19 Musculoskeletal/extremity: Circulation is intact in all extremities. Sensation intact. Compartment Syndrome exam of affected extremity: is normal. no pain, no numbness, no tingling, no sensation deficit, no palor, no weak pulses, Joints: All joints appear normal with full range of motion. Weight bearing: able to fully bear weight, Tendon exam: unable to examine DVT Exam: No signs of deep vein thrombosis. no pain, no swelling, no tenderness, negative Homans' sign noted on exam, no appreciated bluish discoloration, no erythema, no increased warmth, 19:26 ECG was reviewed by the Attending Physician. [facility] Vital Signs: 15:06 BP 118 / 85; Pulse 74; Resp 16; Temp 98; Pulse Ox 100% on R/A; Weight 48.99 kg; Height iw 5 ft. 1 in. ; 19:27 BP 98 / 75; Pulse 68; Resp 16; Pulse Ox 100% on R/A; al5 15:06 Body Mass Index 20.41 (48.99 kg, 154.94 cm) iw MDM: 15:05 Medical Screening Exam initiated [facility] 18:25 Antibiotic administration: Levaquin given. Differential diagnosis: Anxiety Reaction lei Bronchitis anxiety, chest wall pain, costochondritis, gastritis, herpes zoster, hiatal hernia, peptic ulcer disease, pneumonia, pneumothorax, pulmonary embolus, unstable angina. Immunization status:. Data reviewed: vital signs, nurses notes, lab test result(s). Consideration of Admission/Observation Patient was admitted/placed on observation. Escalation of care including admission/observation considered. Independent interpretation of the following test(s) in the Emergency Department CT Scan: My interpretation is CT CHEST RO PE. Test considered but Not performed: Ultrasound NO 2 ECHO. Care significantly affected by the following chronic conditions: ASTHMA, SLE, KIDNEY STONES. 08/09 15:09 Order name: Basic Metabolic Panel; Complete Time: 18:45 lei 08/09 15:09 Order name: CBC with Diff 08/09 15:09 Order name: LFT's; Complete Time: 18:45 08/09 15:09 Order name: Magnesium; Complete Time: 18:45 08/09 15:09 Order name: NT PRO-BNP; Complete Time: 18:45 08/09 15:09 Order name: PT-INR; Complete Time: 20:29 08/09 15:09 Order name: Troponin HS; Complete Time: 18:45 08/09 15:09 Order name: Urinalysis w/ reflexes 08/09 15:09 Order name: Blood Culture Adult (2) 08/09 15:09 Order name: COVID-19 Ag + Flu A+B Ag; Complete Time: 20:29 lei 08/09 15:59 Order name: PREGU; Complete Time: 17:59 lei 08/09 18:17 Order name: Lactate w/ 2H reflex if indic.; Complete Time: 20:29 08/09 18:52 Order name: Sputum Culture [facility] 08/09 20:32 Order name: CBC with Automated Diff EDIA 08/09 20:32 Order name: CBC with Automated Diff EDMS 08/09 20:32 Order name: Comprehensive Metabolic Panel EDIA 08/09 20:32 Order name: Comprehensive Metabolic Panel EDIA 08/09 20:32 Order name: Protime (+INR) EDMS 08/09 20:32 Order name: Protime (+INR) EDMS 08/09 20:32 Order name: PTT, Activated Partial Thromb EDMS 08/09 20:32 Order name: PTT, Activated Partial Thromb EDMS 08/09 22:56 Order name: CBC Smear Scan EDIA 08/09 15:09 Order name: XRAY Chest (1 view); Complete Time: 17:59 lei 08/09 15:09 Order name: CT Chest For PE Angio; Complete Time: 18:40 08/09 15:09 Order name: EKG; Complete Time: 15:09 08/09 20:32 Order name: CONS Physician Consult EDIA 08/09 15:09 Order name: Cardiac monitoring; Complete Time: 19:26 lei 08/09 15:09 Order name: EKG - Nurse/Tech; Complete Time: 19:26 lei 08/09 15:09 Order name: IV Saline Lock; Complete Time: 18:04 lei 08/09 15:09 Order name: Labs collected and sent; Complete Time: 18:04 lei 08/09 15:09 Order name: O2 Per Protocol; Complete Time: 18:34 lei 08/09 15:09 Order name: O2 Sat Monitoring; Complete Time: 18:34 lei EC: Rate is 68 beats/min. Rhythm is regular. QRS [place] is Normal. [place] interval is shortened lei at 68 msec. QRS interval is normal. QT interval is normal. No Q waves. T waves are Normal. No ST changes noted. Clinical impression: NSR w/ Non-specific ST/T Changes and No evidence of ischemia. Interpreted by me. Reviewed by me. Administered Medications: 18:47 Drug: NS 0.9% IV 1000 ml IV at 1000 ml once; to be given as a bolus over 60 minutes dd2 Route: IV; Rate: 1000 ml; Site: left antecubital; 18:47 Drug: levofloxacin IVPB 750 mg 150 ml IVPB once over 90 mins Volume: 150 ml; Route: dd2 IVPB; Infused Over: 90 mins; Site: left antecubital; 19:29 Drug: Levalbuterol Inhalation 2.5 mg Inhalation once Route: Inhalation; al5 19:29 Drug: Ipratropium Inhalation Aerosol 0.5 mg Inhalation once Route: Inhalation; al5 21:00 Drug: NS 0.9% IV 1000 ml IV at 1000 ml once; to be given as a bolus over 60 minutes rg5 Route: IV; Rate: 1000 ml; Site: left antecubital; 21:00 Drug: Rocephin IV 2 grams IV at per protocol once; Given slow IV push per pharmarcy rg5 instructions Route: IV; Rate: per protocol; Site: left antecubital; Disposition Summary: 08/09/24 18:48 Hospitalization Ordered Notes: Hospitalization Status: Inpatient Admission lei Provider: Traci Street cha Condition: Fair lei Problem: new lei Symptoms: are unchanged lei Bed/Room Type: Standard lei Location: Telemetry/MedSurg (Inpatient)(08/09/24 23:52) Room Assignment: 229(08/09/24 23:52) Diagnosis - Pneumonia due to other specified bacteria - BILATERAL lei - Pleurisy lei - Pleural effusion, not elsewhere classified lei - Bronchiectasis with acute lower respiratory infection lei - Systemic lupus erythematosus, unspecified lei Forms: - Medication Reconciliation Form lei - SBAR form lei - Leadership Thank You Letter lei Signatures: Dispatcher [employer] EDMS Sirisha Hudson RN RN kl Anderson, Corey, MD MD cha Williams, Irene RN REG iw Madelyn Andrews RN RN kb3 Deon Romero, RN RN rg5 Shayla Gamboa RN RN al5 KAL RHOADES RN RN dd2 Corrections: (The following items were deleted from the chart) 15:10 15:09 BASIC METABOLIC PANEL+C.LAB.BRZ ordered. EDMS EDMS 15:10 15:09 CBC+H.LAB.BRZ ordered. EDMS EDMS 15:10 15:09 HEPATIC FUNCTION+C.LAB.BRZ ordered. EDMS EDMS 15:10 15:09 MAGNESIUM+C.LAB.BRZ ordered. EDMS EDMS 15:10 15:09 PROBNP+C.LAB.BRZ ordered. EDMS EDMS 15:10 15:09 PROTIME (+INR)+COAG.LAB.BRZ ordered. EDMS EDMS 15:10 15:09 Troponin High Sensitivity+C.LAB.BRZ ordered. EDMS EDMS 15:10 15:09 Urinalysis+U.LAB.BRZ ordered. EDMS EDMS 15:10 15:09 BLOOD CULTURE*+BA.LAB.BRZ ordered. EDMS EDMS 15:10 15:09 COVID-19 Ag + Flu A+B Ag+I.LAB.BRZ ordered. EDMS EDMS 17:04 16:00 TEST, SERUM+SC.LAB.BRZ ordered. EDMS EDMS 18:52 18:52 Sputum Culture+BA.LAB.BRZ ordered. EDMS EDMS 18:52 18:52 IS+RC.RAD.BRZ ordered. EDMS EDMS 20:37 18:48 Telemetry/MedSurg (Inpatient) [facility] kb3 20:37 18:48 lei kb3 23:52 20:37 [facility] ER HOLD kb3 kl 23:52 20:37 ERHOLD- kb3 kl
[2024-08-09 19:04] LABS: PT Prothrombin Time 11.3 SECONDS (10-13.0); Protime INR 0.99
[2024-08-09] MEDS ORDERED: IPRATROPIUM BROM 0.5MG/2.5ML ONE (19:12)
[2024-08-09] MEDS ORDERED: CEFTRIAXONE 2000 MG/VIAL ONE (19:13)
[2024-08-09] MEDS ORDERED: LEVALBUTEROL 1.25 MG/3 ML NEB ONE (19:13)
[2024-08-09] MEDS ORDERED: NA CHLORIDE 0.9% 50 ML ONE (19:14)
--- NOTE | 2024-08-09 20:24 | P.HP ---
Certification for Inpatient Patient admitted to: Inpatient With expected LOS: >2 Midnights Patient will require the following post-hospital care: None Practitioner: I am a practitioner with admitting privileges, knowledge of patient current condition, hospital course, and medical plan of care. Services: Services provided to patient in accordance with Admission requirements found in Title 42 Section 412.3 of the Code of Federal Regulations Patient History Date of Service: 08/09/24 Reason for admission: Pleuritic chest pain and shortness of breath History of Present Illness: Patient is 34-year-old female who has a history of SLE and a 50 pound weight loss on Ozempic treatment, who came to the hospital with pleuritic chest pain. Patient also with complaints of shortness of breath. Patient has been having symptoms for over a month. She had a scan done about a month ago which revealed similar findings. Findings appear to be chronic and could be related to patient's history of SLE. Patient denies any nausea or vomiting or aspiration. When she came in about a month ago they thought she may have kidney stones causing her symptoms. However, the symptoms never really improved so she came into the emergency room once again today for further evaluation. Patient does have a small pleural effusion and no other abnormalities. Emergency room physician wanted to admit the patient to the hospital for observation. At this time patient be admitted for observation. Allergies No Known Allergies Allergy (Verified 06/08/18 10:35) Home Medications: Ibuprofen 400 mg PO PRN PRN 06/08/18 - Past Medical/Surgical History -: SLE -: Recessive gene for CF -: Nephrolithiasis Past Surgical History: Patient denies surgical history - Family History Father Family History: Reviewed- Non-Contributory - Social History Smoking Status: Never smoker Alcohol use: No CD- Drugs: No Review of Systems 10-point ROS is otherwise unremarkable Physical Examination - Vital Signs Temperature: 98 F Blood Pressure: 150/80 Pulse: 80 Respirations: 18 Pulse Ox (%): 95 - Physical Exam General: Alert, In no apparent distress, Oriented x3 HEENT: Atraumatic, PERRLA, Mucous membr. moist/pink, EOMI, Sclerae nonicteric Neck: Supple, 2+ carotid pulse no bruit, No LAD, Without JVD or thyroid abnormality Respiratory: Diminished (At the left base) Cardiovascular: Regular rate/rhythm, Normal S1 S2 Gastrointestinal: Normal bowel sounds, Soft and benign, Non-distended, No tenderness Musculoskeletal: No clubbing, No swelling, No tenderness Integumentary: No rashes Neurological: Normal gait, Normal speech, Normal strength at 5/5 x4 extr, Normal tone, Sensation intact, Cranial nerves 3-12 intact, Normal affect Lymphatics: No axilla or inguinal lymphadenopathy - Studies Laboratory Data (last 24 hrs) 08/09/24 08/09/24 08/09/24 18:20 18:00 18:00 WBC 5.40 Hgb 12.3 Hct 35.0 L Plt Count 219 PT 11.3 INR 0.99 Sodium 137 Potassium 3.6 BUN 4 L Creatinine 0.61 Glucose 96 Magnesium 2.2 Total Bilirubin 0.4 AST 11 L ALT 15 Alkaline Phosphatase 64 Assessment & Plan - Problems (Diagnosis) (1) Pleural effusion Current Visit: Yes Status: Acute (2) Pleuritic chest pain Current Visit: Yes Status: Acute (3) History of systemic lupus erythematosus (SLE) Current Visit: Yes Status: Acute (4) Macrocytosis Current Visit: Yes Status: Acute (5) Cystic fibrosis gene carrier Current Visit: Yes Status: Acute - Plan Plan: 1. Patient with pleuritic chest pain in the setting of a small pleural effusion; this could be related to patient's SLE. Will get a pulmonary consultation for further evaluation. Will continue with steroids and pain control. Will get recommendation from pulmonary. 2. History of chronic sinusitis; patient is a carrier of cystic fibrosis gene which could lead to mild symptoms. 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 Recent weight loss; patient with use of GLP-1 agonist. Patient lost about 50 pounds. She has been able to keep it off since she stopped the semaglutide. No complications 4. Macrocytosis; check B12 and folic acid level. 5. GI DVT prophylaxis Discharge Plan: Home Plan to discharge in: 24 Hours - Advance Directives Does patient have a Living Will: No Does patient have a Durable POA for Healthcare: No - Code Status/Comfort Care Code Status Assessed: Yes Code Status: Full Code Critical Care: No Time Spent Managing PTS Care (In Minutes): 45
[2024-08-09] MEDS ORDERED: IPRATROPIUM BROM 0.5MG/2.5ML NEB PRN (20:27)
[2024-08-09] MEDS ORDERED: ONDANSETRON 4 MG/2 ML VIAL IV PRN (20:27)
[2024-08-09] MEDS ORDERED: MORPHINE 2 MG/ML SYR IV PRN (20:27)
[2024-08-09] MEDS ORDERED: ACETAMINOPHEN 500 MG TAB PO PRN (20:27)
[2024-08-09] MEDS ORDERED: ALBUTEROL 2.5 MG/3 ML NEB SOL NEB PRN (20:27)
[2024-08-09] MEDS: NA CHLORIDE 0.9% 1,000 ML IV SCH (21:55)
[2024-08-09 22:56] LABS: Blood Morphology Comment NOTED (NOT SEEN); Macrocytosis 1+; Platelet Estimate ADEQ; Polychromasia 1+; White Blood Cell Scan OK (OK)
[2024-08-10 01:15] VITALS: BMI 21.9
[2024-08-10] MEDS: METHYLPREDNISOLONE 40 MG INJ IV SCH (01:40)
[2024-08-10 02:39] VITALS: O2SAT 100
[2024-08-10 07:26] LABS: Absolute Lymphocytes (CBC) 0.3 K/uL (0.7-4.9); Absolute Monocytes 0.1 K/uL (0.1-1.3); Absolute Neutrophil 4.4 K/uL (1.8-8.0); Basophils % 0.1 % (0-1.3); Eosinophils % 0.1 % (0-4.4); Hematocrit 31.8 % (36.0-45.0); Hemoglobin 11.2 g/dL (12.0-15.0); Lymphocytes % 6.6 % (15.3-44.8); MCH 38.3 pg (27.0-35.0); MCHC 35.2 g/dL (32.0-36.0); MCV 108.6 fL (80-100); MPV 6.2 fL (7.6-11.3); Monocytes % 1.2 % (3.3-12.3); Platelets 184 thou/uL (152-406); RBC Red Blood Cell Count 2.93 M/uL (3.86-4.86)
[2024-08-10 07:30] LABS: PTT, Activated Partial Thromb 29.3 SECONDS (27.2-37.4); Protime INR 1.06
[2024-08-10 07:54] LABS: Albumin 3.1 g/dL (3.4-5.0); Albumin/Globulin Ratio 0.9 (1.1-1.8); Alkaline Phosphatase 51 U/L (45-117); Anion Gap 9.1 mEq/L (5.0-15.0); BUN Blood Urea Nitrogen 7 mg/dL (7-18); Bicarbonate 23 mEq/L (21-32); Bilirubin Total 0.2 mg/dL (0.2-1.0); Globulin 3.6 g/dL (2.3-3.5); Glomerular Filtration Rate 126 ml/min (=/>90); Glucose Level 144 mg/dL (74-106); Potassium 4.1 mEq/L (3.5-5.1); Protein, Total 6.7 g/dL (6.4-8.2); Sodium Level 139 mEq/L (136-145)
[2024-08-10 08:08] LABS: ALT/SGPT < 14 U/L (13-56); AST/SGOT < 10 U/L (15-37)
[2024-08-10] MEDS: DULERA 200/5 (MOMETASONE/FORMOTEROL) INHALER IH SCH (09:00)
[2024-08-10] MEDS: predniSONE 20 MG TAB PO SCH (09:15)
[2024-08-10] MEDS: levoFLOXacin 750 MG TAB PO SCH (09:15)
--- NOTE | 2024-08-10 10:11 | P.PN ---
Date of Service: 08/10/24 Subjective patient is clinically doing well. Still having some pain on deep inspiration. Continue with steroids and antibiotics. Will discuss with Pulmonary regarding pleural effusion and see if we need to do a thoracentesis for a week and continue monitoring as an outpatient follow-up. At this time patient will remain on observation with possible discharge home later today. Physical Examination - Vital Signs reviewed - Physical Exam General: Alert, In no apparent distress, Oriented x3 Respiratory: Diminished (At the left base) Cardiovascular: Regular rate/rhythm, Normal S1 S2 Gastrointestinal: Normal bowel sounds, Soft and benign, Non-distended, No tenderness Musculoskeletal: No clubbing, No swelling, No tenderness Integumentary: No rashes Neurological: no focal deficit Assessment & Plan - Problems (Diagnosis) (1) Pleural effusion Current Visit: Yes Status: Acute (2) Pleuritic chest pain Current Visit: Yes Status: Acute (3) History of systemic lupus erythematosus (SLE) Current Visit: Yes Status: Acute (4) Macrocytosis Current Visit: Yes Status: Acute (5) Cystic fibrosis gene carrier Current Visit: Yes Status: Acute - Plan Continue with plan of care as mentioned below: 1. Patient with pleuritic chest pain in the setting of a small pleural effusion; this could be related to patient's SLE. Will get a pulmonary consultation for further evaluation. Will continue with steroids and pain control. Will get recommendation from pulmonary. 2. History of chronic sinusitis; patient is a carrier of cystic fibrosis gene which could lead to mild symptoms. 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 Recent weight loss; patient with use of GLP-1 agonist. Patient lost about 50 pounds. She has been able to keep it off since she stopped the semaglutide. No complications 4. Macrocytosis; check B12 and folic acid level. 5. GI DVT prophylaxis Discharge Plan: Home Plan to discharge in: 24 Hours - Advance Directives Does patient have a Living Will: No Does patient have a Durable POA for Healthcare: No - Code Status/Comfort Care Code Status Assessed: Yes Code Status: Full Code Critical Care: No Time Spent Managing PTS Care (In Minutes): 45
--- NOTE | 2024-08-10 11:54 | EKG ---
Test Date: 2024-08-09 Test Time: 19:20:56 Rn Supplemental: JEANETH MEASUREMENT RESULTS: Intervals: Rate: 68 TX: 110 QRSD: 86 QT: 396 QTc: 421 [place]: P: 29 TX: 110 QRS: 25 T: 22 INTERPRETIVE STATEMENTS: Sinus rhythm with short TX Cannot rule out Anterior infarct, age undetermined Abnormal ECG No previous ECG available for comparison Electronically Signed On 08-10-24 11:52:20 CDT by Timo Salazar
--- NOTE | 2024-08-10 12:29 | P.CNS ---
Date of Consult: 08/10/24 Chief Complaint: Pleuritic chest pain and shortness of breath History of Present Illness: Patient is 34 years of age has had some dyspnea and chest problems for a number of years apparently she was suspected for cystic fibrosis that was ruled out came in in the worse of the past 3 to 4 days worsening shortness of breath some chest discomfort history of SLE CT angiogram did not show any evidence of pulmonary embolism she did have extensive bronchiectasis bilaterally right middle lobe and left lower lobe denies any fever or chills no prior history of bronchiectasis she has had lung problems for a long time Allergies sulfamethoxazole [From Bactrim] Allergy (Verified 08/10/24 01:16) unknown trimethoprim [From Bactrim] Allergy (Verified 08/10/24 01:16) unknown Home Medications: Amox/Clavulanate [Augmentin 875-125 Tab] 875 mg PO BID 7 Days #14 tab 08/10/24 Azithromycin 500 mg PO DAILY 14 Days #14 tab 08/10/24 Fluticasone/Umeclidin/Vilanter [Trelegy Ellipta 200-62.5-25] 1 each IH DAILY 30 Days #30 aero 08/10/24 Folic Acid 1 mg PO DAILY 08/10/24 Hydroxychloroquine [Plaquenil*] 300 mg PO DAILY 08/10/24 predniSONE [Prednisone*] 20 mg PO BID #15 tab 08/10/24 - Past Medical/Surgical History Diabetic: No -: SLE -: Recessive gene for CF -: Nephrolithiasis -: Bronchiectasis -: sinus sx x 3 -: breast implant -: kidney stones removal/blasting - Family History Father Family History: Reviewed- Non-Contributory - Social History Alcohol use: No CD- Drugs: No Place of Residence: Home Review of Systems 10-point ROS is otherwise unremarkable General: Weakness Respiratory: Shortness of Breath Physical Examination Temp Pulse Resp BP Pulse Ox 98 F 80 18 150/80 H 95 08/10/24 10:08/10/24 10:08/10/24 10:09 08/10/24 10:08/10/24 10:09 General: Alert, In no apparent distress, Oriented x3 Neck: Supple Respiratory: Clear to auscultation bilaterally Cardiovascular: No edema, Regular rate/rhythm, Normal S1 S2 Laboratory Data (last 24 hrs) 08/09/24 08/09/24 08/09/24 18:20 18:00 18:00 WBC 5.40 Hgb 12.3 Hct 35.0 L Plt Count 219 PT 11.3 INR 0.99 Sodium 137 Potassium 3.6 BUN 4 L Creatinine 0.61 Glucose 96 Magnesium 2.2 Total Bilirubin 0.4 AST 11 L ALT 15 Alkaline Phosphatase 64 - Problems (1) Bronchiectasis Current Visit: Yes Status: Acute Plan: Patient is 34 years of age has significant bronchiectasis on her CT scan both lung cook right middle lobe in the left lower lobe came in with shortness of breath may have underlying obstructive airways disease she has had lung problems since childhood probably postinflammatory bronchiectasis of ordered immunoglobulin levels alpha-1 level unable to cough up any phlegm vital signs are all stable labs all reviewed no evidence of significant sepsis patient can be discharged home on low-dose prednisone 10 mg twice a day for 7 days she will also need an inhaled bronchodilator in addition to Zithromax and Augmentin for 2 weeks also benefit from a flutter valve stable for discharge macrolides are helpful in preventing exacerbations in patients with bronchiectasis Qualifiers: Bronchiectasis type: with acute exacerbation Qualified Code(s): J47.1 - Bronchiectasis with (acute) exacerbation
[2024-08-10 16:33] VITALS: BP 103/56; TEMP 98.1
[2024-08-10] MEDS ORDERED: Levofloxacin500mg IV 500 MG/100 ML BAG IV SCH (17:00)
[2024-08-11 11:50] LABS: Rheumatoid Factor NEG (NEG)
[2024-08-12 16:47] LABS: Anti-Double Strand DNA Antibod <1 IU/mL (<=4)
[2024-08-14 08:56] LABS: Alpha-1-Antitrypsin 154 mg/dL (83-199); Immunoglobulin A 278 mg/dL (47-310); Immunoglobulin G 1360 mg/dL (600-1640); Immunoglobulin M 99 mg/dL (50-300)
== END 2024-08-10 18:16 | disposition home or self-care (01) ==
LOC: ER 14:59 → ERHOLD 20:27 → 2ND 08-10 00:55
PROVIDERS: ADMIT Hospitalist; ATTEND Hospitalist
DX: J47.1 Bronchiectasis with (acute) exacerbation (principal); J90 Pleural effusion, not elsewhere classified; R07.81 Pleurodynia; R06.02 Shortness of breath; M32.9 Systemic lupus erythematosus, unspecified; D75.89 Other specified diseases of blood and blood-forming organs; J45.909 Unspecified asthma, uncomplicated; Z11.52 Encounter for screening for COVID-19; Z14.1 Cystic fibrosis carrier
CPT/HCPCS: 93005; 87040 ×2; 87070; 85025 ×2; 80048; 36415; 83735; 87205; 86430; 81025; 85610 ×2; 80076; 83605; 85730; 84484; 87015; 87206; 80053; 86038; 86225; 83880; 82784 ×3; 82103; 87116; 86140; 71275; 71045; 96375; 96374; 99285; 87428; 94668; Q9967; J7512; J3535; J7614; J7644; J0696; J7030 ×2; J2919 ×2; G0378 ×4